=== PATIENT | female | born 1950 | race Caucasian/White ===

== ENCOUNTER → 2020-05-03 13:37 | Outpatient (CLI) | payer MEDICARE, SELFPAY ==
--- NOTE | ~2020-05-03 | MM_ITS ---
EXAMINATION: MM screening [facility] BI w [facility] HISTORY: Screening mammogram TECHNIQUE: Craniocaudal and mediolateral oblique 3-D tomosynthesis images were obtained and synthetic 2-D images were generated. CAD analysis was submitted and interpreted. COMPARISON: 07/28/2019 diagnostic right digital mammogram and limited right breast ultrasound 03/05/2019, 01/16/2018, 01/03/2017, 11/23/2015 bilateral digital screening mammogram examinations BREAST PARENCHYMAL COMPOSITION: There are scattered areas of fibroglandular density. FINDINGS: There is no evidence of suspicious mass, calcification, or architectural distortion to sugg est malignancy in either breast. There has been no suspicious interval change. IMPRESSION: 1. No mammographic evidence of malignancy. 2. Recommend routine screening mammography in one year. BI-RADS Category 1: Negative Reviewed, dictated and finalized at location A.
== END ==
PROVIDERS: PCP Family Medicine; Visit Provider Obstetrics & Gynecology
DX: Z12.31 Encounter for screening mammogram for malignant neoplasm of breast (principal)
CPT/HCPCS: 77063; 77067

== ENCOUNTER → 2021-11-23 10:26 | Outpatient (CLI) | payer MEDICARE, SELFPAY ==
--- NOTE | ~2021-11-23 | MM_ITS ---
EXAMINATION: MM screening [facility] BI w [facility] HISTORY: Screening TECHNIQUE: Craniocaudal and mediolateral oblique 3-D tomosynthesis images were obtained and synthetic 2-D images were generated. CAD analysis was submitted and interpreted. COMPARISON: Comparison to multiple prior studies sequentially, with oldest reviewed study dated 01/03. BREAST PARENCHYMAL COMPOSITION: There are scattered areas of fibroglandular density. FINDINGS: There is no evidence of suspicious mass, calcification, or architectural distortion to sugg est malignancy in either breast. There has been no suspicious interval change. IMPRESSION: 1. No mammographic evidence of malignancy. 2. Recommend routine screening mammography in one year. BI-RADS Category 1: Negative Reviewed, dictated and finalized at location A.
== END ==
PROVIDERS: PCP Family Medicine; Visit Provider Obstetrics & Gynecology
DX: Z12.31 Encounter for screening mammogram for malignant neoplasm of breast (principal)
CPT/HCPCS: 77063; 77067

== ENCOUNTER → 2023-02-27 14:39 | Outpatient (CLI) | payer MEDICARE, SELFPAY ==
--- NOTE | ~2023-02-27 | MM_ITS ---
EXAMINATION: MM screening [facility] BI w [facility] HISTORY: Screening TECHNIQUE: Craniocaudal and mediolateral oblique 3-D tomosynthesis images were obtained and synthetic 2-D images were generated. CAD analysis was submitted and interpreted. COMPARISON: Comparison to multiple prior studies sequentially, with oldest reviewed study dated 01/03. BREAST PARENCHYMAL COMPOSITION: There are scattered areas of fibroglandular density. FINDINGS: There is no evidence of suspicious mass, calcification, or architectural distortion to sugg est malignancy in either breast. There has been no suspicious interval change. IMPRESSION: 1. No mammographic evidence of malignancy. 2. Recommend routine screening mammography in one year. BI-RADS Category 1: Negative Reviewed, dictated and finalized at location A.
== END ==
PROVIDERS: PCP Family Medicine; Visit Provider Obstetrics & Gynecology
DX: Z12.31 Encounter for screening mammogram for malignant neoplasm of breast (principal)
CPT/HCPCS: 77063; 77067

== ENCOUNTER 2023-04-05 11:09 | Emergency (ER) | payer MEDICARE, SELFPAY ==
--- NOTE | ~2023-04-05 | XR_ITS ---
EXAMINATION: XR finger 3rd RT min 2V INDICATION: Right third finger pain TECHNIQUE: Four views of the right third finger are obtained. COMPARISON: None available FINDINGS: There is a subtle oblique fracture at the palmar base of the third middle phalanx. The frac ture appears to extend to the occipital interphalangeal joint and involves greater than 50% of the ar ticular surface. Bone alignment is normal. There is soft tissue swelling of the third finger. 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 IMPRESSION: 1. Oblique fracture at the palmar base of the third middle phalanx which appears to extend to the pro ximal interphalangeal joint and involves greater than 50% of the articular surface. Orthopedic follow -up is recommended. Reviewed, dictated and finalized at location A. IMPRESSION: 1. Oblique fracture at the palmar base of the third middle phalanx which appear s to extend to the proximal interphalangeal joint and involves greater than 50% of the articular surface. Orthopedic follow-up is recommended.
--- NOTE | ~2023-04-05 | XR_ITS ---
EXAMINATION: XR nasal bones min 3V INDICATION: Facial pain, nosebleed TECHNIQUE: Four views of the nasal bones are obtained. COMPARISON: None available FINDINGS: There are acute fractures of the bilateral nasal bones with slight downward displacement of the distal fracture fragment. No additional facial fracture is identified. The paranasal sinuses miguel ear to be well aerated. IMPRESSION: 1. Acute bilateral nasal bone fractures. Reviewed, dictated and finalized at location A.
[2023-04-05 11:15] VITALS: BP 141/96; PULSE 78; RESP 16; TEMP 36.3; O2SAT 100
--- NOTE | 2023-04-05 11:24 | ED.FALL ---
HPI - Fall General Chief Complaint: Fall Stated Complaint: Fell and hit landed on nose Time Seen by Provider: 04/05/23 11:24 Source: patient Mode of arrival: ambulatory Limitations: no limitations History of Present Illness HPI Narrative: Brandee is a 72-year-old female patient presenting to the clinic today with complaints of a ground level fall and injuring her nose and right 3rd finger. She reports she slipped and hit the right side of her head on the screen door. Has nasal bridge swelling/bruising and epistaxis to the right nare. Also reports right 3rd finger pain in the middle joint. Thinks she may have jammed her finger. She denies any loss of consciousness or neck pain. Tetanus UTD. Related Data Home Medications Medication Instructions Recorded Confirmed amlodipine 10 mg-benazepril 20 mg 1 cap PO DAILY 04/05/23 04/05/23 capsule atorvastatin 40 mg tablet 40 mg PO DAILY 04/05/23 04/05/23 ergocalciferol (vitamin D2) 1,250 1,250 mcg PO WEEKLY 04/05/23 04/05/23 mcg (50,000 unit) capsule (Vitamin D2) levothyroxine 125 mcg tablet 125 mcg PO DAILY 04/05/23 04/05/23 metoprolol succinate 25 mg 25 mg PO DAILY 04/05/23 04/05/23 tablet,extended release 24 hr trazodone 100 mg tablet 100 mg PO HS 04/05/23 04/05/23 Allergies Allergy/AdvReac Type Severity Reaction Status Date / Time latex Allergy Mild RESPIRATORY Verified 04/05/23 11:26 lidocaine Allergy Mild ITCHY Verified 04/05/23 11:26 THROAT Penicillins Allergy Mild RASH Verified 04/05/23 11:26 propoxyphene Allergy Mild LIGHT Verified 04/05/23 11:26 HEADED Review of Systems Review of Systems: Pertinent positives per HPI. Patient denies any fever, chills, rash, headache, visual changes, dizziness, cough, runny nose, sore throat, shortness of breath, chest pain, palpitations, nausea, vomiting, diarrhea, constipation, abdominal pain, or any urinary issues. PMFSH Comments At the time of my signature, I reviewed and agree with the nursing past medical, surgical, social, and family history. There is no relevant family history pertinent to the patient complaint. Exam Narrative: General: Well-developed, well nourished, in no apparent distress Head: Normocephalic, small contusion with mild swelling to the right forehead, bruising and swelling noted over the nasal bone bridge with tenderness to palpation, resolved epistaxis of the right nare with dried blood in nare. Somewhat difficult to breathe through her nose with occlusion contralaterally Cardio: Regular rate and rhythm, s1 and s2 normal, no murmur appreciated. Resp: Clear to auscultation bilaterally, no rhonchi, rales, wheezing or rubs. Musculoskeletal: No deformity,swelling noted over the right 3rd mid phalanx, tender to palpation over the right 3rd pip joint, grossly normal range of motion against resistance, muscle strength strong and equal, peripheral pulse strong, no edema, no cyanosis, normal gait and station Course Course Emergency Course: Portions of this record may have been created with voice recognition software. Level of Care: Express Care Visit Vital Signs Vital signs: Vital signs reviewed MDM - Fall MDM Narrative Medical decision making narrative: At the time of visit patient is resting on the exam table. She denies any loss of consciousness or neck pain. X-rays of the nasal bones and of the right 3rd finger was completed. She has multiple nasal bone fracture with slight displacement-right near Epistaxis-will treat as an open fracture and send in prescription for Keflex. Patient reports that she has taken this before without reaction. Will give referral for ENT for evaluation. X-ray of the right 3rd finger shows a middle phalanx fracture that is extending into the phalanx with 50% articular surface. Will send for Ortho referral and splint the right 3rd finger in the clinic today. Her tetanus is up-to-date. Supportive measures were discussed with the patient she voiced
[2023-04-05 11:28] VITALS: BP 141/96; PULSE 78; RESP 16; TEMP 36.3; O2SAT 100
== END 2023-04-05 12:22 | disposition home or self-care (01) ==
PROVIDERS: Emergency Provider Nurse Practitioner Family; PCP Family Medicine
DX: S02.2XXA Fracture of nasal bones, initial encounter for closed fracture (principal); S62.652A Nondisplaced fracture of middle phalanx of right middle finger, initial encounter for closed fracture; W18.30XA Fall on same level, unspecified, initial encounter; S00.83XA Contusion of other part of head, initial encounter; Z85.72 Personal history of non-Hodgkin lymphomas; F32.A Depression, unspecified
CPT/HCPCS: 29130; 70160; 73140; 99204; G0463

== ENCOUNTER 2024-04-08 11:03 | Outpatient (CLI) | payer MEDICARE, SELFPAY ==
--- NOTE | ~2024-04-08 | MM_ITS ---
EXAMINATION: MM screening [facility] w [facility] HISTORY: Screening TECHNIQUE: Craniocaudal and mediolateral oblique 3-D tomosynthesis images were obtained and synthetic 2-D images were generated. CAD analysis was submitted and interpreted. COMPARISON: Comparison to multiple prior studies sequentially, with oldest reviewed study dated 02/2018. BREAST PARENCHYMAL COMPOSITION: Not dense: There are scattered areas of fibroglandular density. FINDINGS: There is no evidence of suspicious mass, calcification, or architectural distortion to sugg est malignancy in either breast. There has been no suspicious interval change. IMPRESSION: 1. No mammographic evidence of malignancy. 2. Recommend routine screening mammography in one year. BI-RADS Category 1: Negative Reviewed, dictated and finalized at location B.
== END 2024-04-08 11:04 ==
LOC: MICIMG 11:03
PROVIDERS: PCP Family Medicine; Visit Provider Obstetrics & Gynecology
DX: Z12.31 Encounter for screening mammogram for malignant neoplasm of breast (principal)
CPT/HCPCS: 77063; 77067

== ENCOUNTER 2025-04-14 11:09 | Outpatient (CLI) | payer MEDICARE, SELFPAY ==
--- NOTE | ~2025-04-14 | MM_ITS ---
EXAMINATION: MM screening [facility] BI w [facility] HISTORY: Screening TECHNIQUE: Craniocaudal and mediolateral oblique 3-D tomosynthesis images were obtained and synthetic 2-D images were generated. CAD analysis was submitted and interpreted. COMPARISON: Mammogram 04/08/2024 and 02/27/2023 BREAST PARENCHYMAL COMPOSITION: There are scattered areas of fibroglandular density. FINDINGS: There is no evidence of suspicious mass, calcification, or architectural distortion to suggest malignancy. There has been no suspicious interval change. IMPRESSION: 1. No mammographic evidence of malignancy. Recommend routine screening mammography in one year. BI-RADS Category 2: Benign finding(s) Reviewed, dictated and finalized at location Q. IMPRESSION: 1. No mammographic evidence of malignancy. Recommend routine screening mammogra phy in one year. BI-RADS Category 2: Benign finding(s)
== END 2025-04-14 11:10 | disposition home or self-care (01) ==
LOC: MICIMG 11:12
PROVIDERS: PCP Family Medicine; Visit Provider Obstetrics & Gynecology
DX: Z12.31 Encounter for screening mammogram for malignant neoplasm of breast (principal)
CPT/HCPCS: 77063; 77067